=== PATIENT | female | born 1965 | race Hispanic/Latino ===

== ENCOUNTER 2018-01-28 18:11 | Emergency (ER) | payer BC, OTHER ==
[2018-01-28] MEDS ORDERED: ACETAMINOPHEN-CODEINE 300/30MG TAB ONE (18:36)
== END 2018-01-28 19:52 | disposition home or self-care (01) ==
LOC: EDH 18:11
DX: S93.691A Other sprain of right foot, initial encounter (principal); S93.491A Sprain of other ligament of right ankle, initial encounter; I10 Essential (primary) hypertension; E78.5 Hyperlipidemia, unspecified; H40.9 Unspecified glaucoma; Z90.710 Acquired absence of both cervix and uterus; Z98.890 Other specified postprocedural states; X58.XXXA Exposure to other specified factors, initial encounter; Y93.89 Activity, other specified; Y92.89 Other specified places as the place of occurrence of the external cause; Y99.8 Other external cause status
CPT/HCPCS: 73610; 73630